=== PATIENT | female | born 1940 | race Caucasian/White ===

== ENCOUNTER 2017-01-19 10:13 | Inpatient (IN) | payer MEDICARE ==
[2017-01-19] MEDS ORDERED: SODIUM CHLORIDE 0.9% 500 ML IV STA (10:29)
--- NOTE | 2017-01-19 10:46 | ED ---
Weakness HPI - General Source: patient, family, RN notes reviewed Mode of arrival: wheelchair Limitations: no limitations <Tylor Navarro - Last Filed: 01/19/17 12:27> <Emmanuel Landa - Last Filed: 01/19/17 12:56> - General Chief complaint: Weakness Stated complaint: weakness Time Seen by Provider: 01/19/17 10:29 - History of Present Illness Initial comments: This is a 76-year-old female presents to emergency room with chief complaint of weakness. Patient states she's been having increasing weakness over last few days. Patient saw primary care physician on Tuesday because she's been having diarrhea and was diagnosed with UTI. Patient had lab work drawn and started on ciprofloxacin. She took her doses on Tuesday and this morning and states that they called her doctor who advised her emergency department due to increased weakness. She states she just generalized does not feel well. She denies any known fever but states that she's felt hot and cold. Patient denies chest pain, shortness breath, headache or dizziness. Patient has CVA in June was in rehab in [place]. Patient states she has paralysis of the left side. Patient was sent here for admission for placement in rehab. Patient denies any vomiting states that she is very nauseated and has some diarrhea (Tylor Navarro) - Related Data Home Medications Medication Instructions Recorded Confirmed Albuterol Sulfate [Proair Hfa] 1 - 2 puff INHALATION RT-Q6H PRN 12/20/14 Aspirin 81 mg PO DAILY 12/20/14 01/19/17 Beclomethasone Dipropionate [Qvar 2 puff INHALATION RT-BID 12/20/14 01/19/17 80 mcg/puff] Liraglutide [Victoza 3-Kaden] 1.2 mg SQ W/SUPPER 12/20/14 01/19/17 Metoprolol Tartrate [Lopressor] 25 mg PO DAILY 12/20/14 01/19/17 Montelukast [Singulair] 10 mg PO HS 12/20/14 01/19/17 Ramipril 10 mg PO W/SUPPER 12/20/14 01/19/17 metFORMIN HCL [Glucophage] 500 mg PO BID 12/20/14 01/19/17 Apixaban [Eliquis] 5 mg PO W/SUPPER 01/17/17 01/19/17 Atorvastatin [Lipitor] 40 mg PO DAILY 01/17/17 01/19/17 Baclofen [Lioresal] 5 mg PO BID@0800,1200 01/17/17 01/19/17 Baclofen [Lioresal] 15 mg PO HS 01/17/17 01/19/17 Cholecalciferol [Vitamin D3] 2,000 unit PO DAILY 01/17/17 01/19/17 Insulin Detemir [Levemir] 16 unit SQ AC-BRKFST 01/17/17 01/19/17 Magnesium Oxide [Mag-Ox] 400 mg PO DAILY 01/17/17 01/19/17 Omeprazole 40 mg PO DAILY 01/17/17 01/19/17 PARoxetine HCL [Paxil] 40 mg PO DAILY 01/17/17 01/19/17 Teriparatide [Forteo] 20 mcg SQ DAILY 01/17/17 01/19/17 amLODIPine [Norvasc] 5 mg PO BID 01/17/17 01/19/17 Previous Rx's Medication Instructions Recorded Ciprofloxacin HCl [Cipro] 500 mg PO Q12HR #20 tablet 01/17/17 Allergies Allergy/AdvReac Type Severity Reaction Status Date / Time Penicillins Allergy Unknown Verified 01/19/17 11:06 Childhood Review of Systems ROS Other: All systems not noted in ROS Statement are negative. <Tylor Navarro - Last Filed: 01/19/17 12:27> ROS Other: All systems not noted in ROS Statement are negative. <Emmanuel Landa - Last Filed: 01/19/17 12:56> ROS Statement: Those systems with pertinent positive or pertinent negative responses have been documented in the HPI. Past Medical History Past Medical History: Asthma, CVA/TIA, Diabetes Mellitus, GERD/Reflux, Hyperlipidemia, Hypertension Additional Past Medical History / Comment(s): irregular heartbeat History of Any Multi-Drug Resistant Organisms: None Reported Past Surgical History: Breast Surgery, Tonsillectomy Additional Past Surgical History / Comment(s): lung surgery,cataract both eyes, Past Psychological History: Anxiety, Depression Smoking Status: Never smoker Past Alcohol Use History: None Reported Past Drug Use History: None Reported <Tylor Navarro - Last Filed: 01/19/17 12:27> General Exam Limitations: no limitations General appearance: alert, in no apparent distress Head exam: Present: atraumatic, normocephalic, normal inspection Neck exam: Present: normal inspection, full ROM. Absent: tenderness, meningismus, lymphadenopathy Respiratory exam: Present: normal lung sounds bilaterally. Absent: respiratory distress, wheezes, rales, rhonchi, stridor Cardiovascular Exam: Present: regular rate, normal rhythm, normal heart sounds. Absent: systolic murmur, diastolic murmur, rubs, gallop, clicks GI/Abdominal exam: Present: soft, normal bowel sounds. Absent: distended, tenderness, guarding, rebound, rigid Extremities exam: Present: other (Left-sided paralysis) Neurological exam: Present: alert, oriented X3, CN II-XII intact Skin exam: Present: warm, dry, intact, normal color. Absent: rash <Tylor Navarro - Last Filed: 01/19/17 12:27> Course <Tylor Navarro - Last Filed: 01/19/17 12:27> <Emmanuel Landa - Last Filed: 01/19/17 12:56> Vital Signs 01/19/17 01/19/17 10:23 12:10 Temperature 98.4 F 97.4 F L Pulse Rate 64 74 Respiratory 16 20 Rate Blood Pressure 126/58 129/60 O2 Sat by Pulse 95 92 L Oximetry - Reevaluation(s) Reevaluation #1: 01/19/17 12:55 I did personally do a [id number] evaluation the patient did discuss findings with her and her . Patient does demonstrate dehydration no bowel pain on palpation at this time. I did review the charting and the labs that were performed. I did discuss the case with Dr. Valdez. Patient will be admitted for failed outpatient treatment (Emmanuel Landa) Medical Decision Making - Lab Data Result diagrams: 01/19/17 11:07 01/19/17 11:07 <Tylor Navarro - Last Filed: 01/19/17 12:27> - Lab Data Result diagrams: 01/19/17 11:07 01/19/17 11:07 <Emmanuel Landa - Last Filed: 01/19/17 12:56> - Lab Data Lab Results 01/19/17 01/19/17 01/19/17 Range/Units 11:07 11:07 11:07 WBC 9.4 (3.8-10.6) k/uL RBC 4.51 (3.80-5.40) m/uL Hgb 13.4 (11.4-16.0) gm/dL Hct 40.7 (34.0-46.0) % MCV 90.2 (80.0-100.0) fL MCH 29.8 (25.0-35.0) pg MCHC 33.0 (31.0-37.0) g/dL RDW 13.1 (11.5-15.5) % Plt Count 148 L (150-450) k/uL Neutrophils % 77 % Lymphocytes % 10 % Monocytes % 8 % Eosinophils % 2 % Basophils % 1 % Neutrophils # 7.2 (1.3-7.7) k/uL Lymphocytes # 0.9 L (1.0-4.8) k/uL Monocytes # 0.7 (0-1.0) k/uL Eosinophils # 0.2 (0-0.7) k/uL Basophils # 0.1 (0-0.2) k/uL PT (9.0-12.0) sec INR (<1.2) APTT (22.0-30.0) sec Sodium 138 (137-145) mmol/L Potassium 4.1 (3.5-5.1) mmol/L Chloride 105 (98-107) mmol/L Carbon Dioxide 22 (22-30) mmol/L Anion Gap 11 mmol/L BUN 22 H (7-17) mg/dL Creatinine 0.63 (0.52-1.04) mg/dL Est GFR (MDRD) Af Amer >60 (>60 ml/min/1.73 sqM) Est GFR (MDRD) Non-Af >60 (>60 ml/min/1.73 sqM) Glucose 90 (74-99) mg/dL Plasma Lactic Acid Demetris (0.7-2.0) mmol/L Calcium 8.9 (8.4-10.2) mg/dL Magnesium 1.7 (1.6-2.3) mg/dL Total Bilirubin 0.5 (0.2-1.3) mg/dL AST 48 H (14-36) U/L ALT 55 H (9-52) U/L Alkaline Phosphatase 124 (38-126) U/L Total Creatine Kinase 32 (30-135) U/L CK-MB (CK-2) <0.2 (0.0-2.4) ng/mL CK-MB (CK-2) Rel Index Troponin I <0.012 (0.000-0.034) ng/mL Total Protein 6.0 L (6.3-8.2) g/dL Albumin 3.0 L (3.5-5.0) g/dL Urine Color Urine Appearance (Clear) Urine pH (5.0-8.0) Ur Specific [place] (1.001-1.035) Urine Protein (Negative) Urine Glucose (UA) (Negative) Urine Ketones (Negative) Urine Blood (Negative) Urine Nitrite (Negative) Urine Bilirubin (Negative) Urine Urobilinogen (<2.0) mg/dL Ur Leukocyte Esterase (Negative) Urine RBC (0-5) /hpf Urine WBC (0-5) /hpf Urine WBC Clumps (None) /hpf Amorphous Sediment (None) /hpf Urine Bacteria (None) /hpf Urine Mucus (None) /hpf 01/19/17 01/19/17 01/19/17 Range/Units 11:07 11:07 11:07 WBC (3.8-10.6) k/uL RBC (3.80-5.40) m/uL Hgb (11.4-16.0) gm/dL Hct (34.0-46.0) % MCV (80.0-100.0) fL MCH (25.0-35.0) pg MCHC (31.0-37.0) g/dL RDW (11.5-15.5) % Plt Count (150-450) k/uL Neutrophils % % Lymphocytes % % Monocytes % % Eosinophils % % Basophils % % Neutrophils # (1.3-7.7) k/uL Lymphocytes # (1.0-4.8) k/uL Monocytes # (0-1.0) k/uL Eosinophils # (0-0.7) k/uL Basophils # (0-0.2) k/uL PT 12.1 H (9.0-12.0) sec INR 1.2 H (<1.2) APTT 20.3 L (22.0-30.0) sec Sodium (137-145) mmol/L Potassium (3.5-5.1) mmol/L Chloride (98-107) mmol/L Carbon Dioxide (22-30) mmol/L Anion Gap mmol/L BUN (7-17) mg/dL Creatinine (0.52-1.04) mg/dL Est GFR (MDRD) Af Amer (>60 ml/min/1.73 sqM) Est GFR (MDRD) Non-Af (>60 ml/min/1.73 sqM) Glucose (74-99) mg/dL Plasma Lactic Acid Demetris 1.4 (0.7-2.0) mmol/L Calcium (8.4-10.2) mg/dL Magnesium (1.6-2.3) mg/dL Total Bilirubin (0.2-1.3) mg/dL AST (14-36) U/L ALT (9-52) U/L Alkaline Phosphatase (38-126) U/L Total Creatine Kinase (30-135) U/L CK-MB (CK-2) (0.0-2.4) ng/mL CK-MB (CK-2) Rel Index Troponin I (0.000-0.034) ng/mL Total Protein (6.3-8.2) g/dL Albumin (3.5-5.0) g/dL Urine Color Yellow Urine Appearance Cloudy H (Clear) Urine pH 6.5 (5.0-8.0) Ur Specific [place] 1.012 (1.001-1.035) Urine Protein 1+ H (Negative) Urine Glucose (UA) Negative (Negative) Urine Ketones Negative (Negative) Urine Blood Large H (Negative) Urine Nitrite Negative (Negative) Urine Bilirubin Negative (Negative) Urine Urobilinogen <2.0 (<2.0) mg/dL Ur Leukocyte Esterase Large H (Negative) Urine RBC 128 H (0-5) /hpf Urine WBC 55 H (0-5) /hpf Urine WBC Clumps Many H (None) /hpf Amorphous Sediment Few H (None) /hpf Urine Bacteria Occasional H (None) /hpf Urine Mucus Rare H (None) /hpf Disposition Time of Disposition: 12:28 <Tylor Navarro - Last Filed: 01/19/17 12:27> <Emmanuel Landa - Last Filed: 01/19/17 12:56> Clinical Impression: UTI (urinary tract infection), Failure of outpatient treatment, Diarrhea, Weakness, History of CVA with residual deficit Disposition: ADMITTED IP TO THIS HOSP Condition: Fair Referrals: Sana Guy MD [Primary Care Provider] - 1-2 days Addendum entered and electronically signed by Tylor Navarro PA-C 01/19/17 12: 32: EKG performed at 11:22 normal sinus rhythm with a rate of 70 GA interval 146 QRS duration 76 QT/QTC 432/466
[2017-01-19 11:32] LABS: Basophils # (A) 0.1 k/uL (0-0.2); Basophils % (A) 1 %; CH 29.4; CHCM 32.7; Eosinophils # (A) 0.2 k/uL (0-0.7); Eosinophils % (A) 2 %; HCT 40.7 % (34.0-46.0); HDW 2.32; HGB 13.4 gm/dL (11.4-16.0); Luc # (Auto) 0.31; Luc % (Auto) 3; Lymphocytes # (A) 0.9 k/uL (1.0-4.8); Lymphocytes % (A) 10 %; MCH 29.8 pg (25.0-35.0); MCV 90.2 fL (80.0-100.0); Mean Platelet Volume 9.6; Monocytes # (A) 0.7 k/uL (0-1.0); Monocytes % (A) 8 %; Neutrophils # (A) 7.2 k/uL (1.3-7.7); Neutrophils % (A) 77 %; RBC 4.51 m/uL (3.80-5.40); RDW 13.1 % (11.5-15.5); WBC 9.4 k/uL (3.8-10.6); WBC (Perox) 9.69
[2017-01-19 11:39] LABS: ALT 55 U/L (9-52); AST 48 U/L (14-36); Alkaline Phosphatase 124 U/L (38-126); Anion Gap 11 mmol/L; Blood Urea Nitrogen 22 mg/dL (7-17); Calcium 8.9 mg/dL (8.4-10.2); Carbon Dioxide 22 mmol/L (22-30); Chloride 105 mmol/L (98-107); Glucose 90 mg/dL (74-99); Magnesium 1.7 mg/dL (1.6-2.3); Non-African American GFR(MDRD) >60 (>60 ml/min/1.73 sqM); Potassium 4.1 mmol/L (3.5-5.1); Sodium 138 mmol/L (137-145); Total Bilirubin 0.5 mg/dL (0.2-1.3)
[2017-01-19 11:49] LABS: Creatine Kinase 32 U/L (30-135)
[2017-01-19 11:51] LABS: INR 1.2 (<1.2); Prothrombin Time 12.1 sec (9.0-12.0)
--- NOTE | 2017-01-19 11:52 | XR ---
EXAMINATION TYPE: XR chest 2V DATE OF EXAM: 01/19/2017 COMPARISON: NONE TECHNIQUE: PA and lateral views submitted. HISTORY: Weakness and pain FINDINGS: The lungs are clear and there is no pneumothorax, pleural effusion, or focal pneumonia. Reduced ins piration with subsegmental changes at both lung bases. Postsurgical change in the left. Diffuse osteo penia and arthropathy of the shoulders. Atherosclerotic change aorta. Small right pleural effusion. IMPRESSION: 1. Small right pleural effusion with subsegmental atelectasis favored over infiltrate. Correlate clin ically.
[2017-01-19 11:55] LABS: Amorphous Sediment,Urine Few /hpf; Appearance,Urine Cloudy (Clear); Bacteria,Urine Occasional /hpf; Bilirubin,Urine Negative (Negative); Glucose,Urine (UA) Negative (Negative); Ketones,Urine Negative (Negative); Leukocyte Esterase,Urine Large (Negative); Mucus,Urine Rare /hpf; Nitrite,Urine Negative (Negative); PH, Urine 6.5 (5.0-8.0); Particle Count 13709; Protein,Urine 1+ (Negative); RBC,Urine 128 /hpf (0-5); Specific Gravity,Urine 1.012 (1.001-1.035); UA Billing (MACRO vs. MICRO) MICRO; Urobilinogen,Urine <2.0 mg/dL (<2.0); WBC,Urine 55 /hpf (0-5)
[2017-01-19 11:58] LABS: Partial Thromboplastin Time 20.3 sec (22.0-30.0)
[2017-01-19 12:03] LABS: Troponin I <0.012 ng/mL (0.000-0.034)
[2017-01-19 12:08] LABS: Creatine Kinase MB <0.2 ng/mL (0.0-2.4)
[2017-01-19] MEDS ORDERED: NALOXONE 0.4 MG/ML 1 ML VIAL IV PRN (12:28)
[2017-01-19] MEDS ORDERED: ACETAMINOPHEN TAB 325 MG TAB PO PRN (12:28)
[2017-01-19] MEDS: SODIUM CHLORIDE 0.9% 1,000 ML IV SCH (13:06)
[2017-01-19 15:35] LABS: Glucose,Whole Blood 81 mg/dL (75-99)
[2017-01-19] MEDS ORDERED: ALBUTEROL NEBULIZED 2.5 MG/3 ML INHALATION PRN (16:38)
[2017-01-19 17:05] LABS: Glucose,Whole Blood 89 mg/dL (75-99)
[2017-01-19] MEDS: INSULIN LISPRO (humaLOG) 300 UNIT/3 ML VIAL SQ SCH ×2 (18:04→21:55)
[2017-01-19] MEDS: LISINOPRIL 20 MG TAB PO SCH (18:06)
[2017-01-19] MEDS: APIXABAN 5 MG TAB PO SCH (18:06)
[2017-01-19 20:59] LABS: Glucose,Whole Blood 113 mg/dL (75-99)
[2017-01-19] MEDS ORDERED: BACLOFEN 10 MG TAB PO SCH (21:00)
[2017-01-19 21:01] LABS: Hemoglobin A1C 6.8 % (4.2-6.1)
[2017-01-19] MEDS: BECLOMETHASONE DIP 80 MCG/PUFF INHALER INHALATION SCH (21:02)
[2017-01-19] MEDS: amLODIPine 5 MG TAB PO SCH (21:54)
[2017-01-19] MEDS: MONTELUKAST 10 MG TAB PO SCH (21:54)
[2017-01-19] MEDS: metFORMIN 500 MG TAB PO SCH (21:54)
[2017-01-19] MEDS: CIPROFLOXACIN HCL 500 MG TAB PO SCH (21:54)
[2017-01-19] MEDS: METOPROLOL TARTRATE 25 MG TAB PO SCH (21:56)
[2017-01-20] MEDS: SODIUM CHLORIDE 0.9% 1,000 ML IV SCH ×2 (06:18→16:25)
[2017-01-20 06:59] LABS: Glucose,Whole Blood 108 mg/dL (75-99)
[2017-01-20] MEDS ORDERED: INSULIN DETEMIR 100 UNIT/ML 10 ML VIAL SQ SCH (07:30)
[2017-01-20] MEDS: INSULIN LISPRO (humaLOG) 300 UNIT/3 ML VIAL SQ SCH ×4 (07:33→20:56)
[2017-01-20] MEDS: amLODIPine 5 MG TAB PO SCH ×2 (07:57→20:54)
[2017-01-20] MEDS: ASPIRIN 81 MG PO SCH (07:58)
[2017-01-20] MEDS: CIPROFLOXACIN HCL 500 MG TAB PO SCH (07:58)
[2017-01-20] MEDS: MAGNESIUM OXIDE 400 MG TAB PO SCH (07:58)
[2017-01-20] MEDS: metFORMIN 500 MG TAB PO SCH (07:58)
[2017-01-20] MEDS: APIXABAN 5 MG TAB PO SCH ×2 (07:58→17:37)
[2017-01-20] MEDS: PANTOPRAZOLE 40 MG TABLET PO SCH (07:58)
[2017-01-20] MEDS: PARoxetine 20 MG TAB PO SCH (07:58)
[2017-01-20] MEDS: METOPROLOL TARTRATE 25 MG TAB PO SCH ×2 (07:59→20:55)
[2017-01-20] MEDS ORDERED: BACLOFEN 10 MG TAB PO SCH (08:00)
[2017-01-20] MEDS: BECLOMETHASONE DIP 80 MCG/PUFF INHALER INHALATION SCH ×2 (08:18→20:07)
[2017-01-20] MEDS ORDERED: ATORVASTATIN 40 MG TAB PO SCH (09:00)
[2017-01-20] MEDS ORDERED: NON-FORMULARY DRUG (Teriparatide [Forteo] 20 MCG) SQ SCH (09:00)
--- NOTE | 2017-01-20 10:30 | P.HPIM ---
History of Present Illness H&P Date: 01/20/17 This is a 76-year-old female with past medical history noted below significant for history of CVA with left-sided hemiplegia who presented to the emergency room with worsening weakness and fatigue. Patient and her said that her symptoms started approximately 10 days ago and is being getting progressively worse. Usually patient is bedbound and her is her primary caregiver. He said that recently she is getting more weak and was unable even to feed herself. She was evaluated by her primary care physician and was diagnosed with an underlying urinary tract infection. She was prescribed Cipro that she took for a couple of days with no improvement. She was asked by her primary care physician to go to the emergency room for further evaluation. In the emergency room, patient was hemodynamically stable. No documented fever. Her urinalysis was strongly positive for underlying UTI. She was started on IV ceftriaxone and was admitted to the hospital for further evaluation. Review of Systems Review of system: 14 points review of systems were obtained and were negative except to what were mentioned in the HPI. Past Medical History Past Medical History: Atrial Fibrillation, Asthma, CVA/TIA, Diabetes Mellitus, GERD/Reflux, Hyperlipidemia, Hypertension Additional Past Medical History / Comment(s): Current UTI on ABX, 06/2016 CVA with L arm and L leg weakness-wheelchair bound, IDDM type II, incontinent of urine and stool-wears depends. History of Any Multi-Drug Resistant Organisms: None Reported Past Surgical History: Breast Surgery, Orthopedic Surgery, Tonsillectomy Additional Past Surgical History / Comment(s): L lung surgery for benign mass, cataract/lens implants both eyes, colonoscopy, R rotator cuff repair. Past Anesthesia/Blood Transfusion Reactions: No Reported Reaction Additional Past Anesthesia/Blood Transfusion Reaction / Comment(s): Pt states she has never received blood. Past Psychological History: Anxiety, Depression Additional Psychological History / Comment(s): Pt resides with her spouse who is her caregiver. She is wheelchair bound, spouse assists her into wheelchair. Spouse drives. Smoking Status: Former smoker Past Alcohol Use History: None Reported Past Drug Use History: None Reported - Past Family History Father Family Medical History: COPD Additional Family Medical History / Comment(s): Father at the age of 65yrs from COPD. He has "thick blood" and had to have blood removed at times. Mother Family Medical History: Cancer Additional Family Medical History / Comment(s): Mother of lymphosarcoma at the age of 55yrs. Medications and Allergies Home Medications Medication Instructions Recorded Confirmed Type Albuterol Sulfate [Proair Hfa] 1 - 2 puff INHALATION RT-Q6H PRN 12/20/14 History Aspirin 81 mg PO DAILY 12/20/14 01/19/17 History Beclomethasone Dipropionate [Qvar 2 puff INHALATION RT-BID 12/20/14 01/19/17 History 80 mcg/puff] Liraglutide [Victoza 3-Kaden] 1.2 mg SQ W/SUPPER 12/20/14 01/19/17 History Montelukast [Singulair] 10 mg PO HS 12/20/14 01/19/17 History Ramipril 10 mg PO W/SUPPER 12/20/14 01/19/17 History metFORMIN HCL [Glucophage] 500 mg PO BID 12/20/14 01/19/17 History Apixaban [Eliquis] 5 mg PO AC-BID 01/17/17 01/19/17 History Atorvastatin [Lipitor] 40 mg PO DAILY 01/17/17 01/19/17 History Baclofen [Lioresal] 5 mg PO BID@0800,1200 01/17/17 01/19/17 History Baclofen [Lioresal] 15 mg PO HS 01/17/17 01/19/17 History Cholecalciferol [Vitamin D3] 2,000 unit PO DAILY 01/17/17 01/19/17 History Ciprofloxacin HCl [Cipro] 500 mg PO Q12HR #20 tablet 01/17/17 01/19/17 Rx Insulin Detemir [Levemir] 16 unit SQ AC-BRKFST 01/17/17 01/19/17 History Magnesium Oxide [Mag-Ox] 400 mg PO DAILY 01/17/17 01/19/17 History Omeprazole 40 mg PO DAILY 01/17/17 01/19/17 History PARoxetine HCL [Paxil] 40 mg PO DAILY 01/17/17 01/19/17 History Teriparatide [Forteo] 20 mcg SQ DAILY 01/17/17 01/19/17 History amLODIPine [Norvasc] 5 mg PO BID 01/17/17 01/19/17 History Metoprolol Tartrate [Lopressor] 25 mg PO BID 01/19/17 01/19/17 History Allergies Allergy/AdvReac Type Severity Reaction Status Date / Time Penicillins Allergy Unknown Verified 01/19/17 11:06 Childhood Physical Exam Vitals: Vital Signs Temp Pulse Pulse Resp BP BP Pulse Ox 01/20/17 07:00 97.1 F L 85 16 138/71 94 L 01/19/17 23:00 97.2 F L 85 16 138/66 92 L 01/19/17 15:15 98.3 F 72 16 124/59 96 01/19/17 14:54 97.7 F 80 18 136/67 97 01/19/17 13:07 97.7 F 74 16 130/67 95 01/19/17 12:10 97.4 F L 74 20 129/60 92 L Intake and Output 01/19/17 01/20/17 01/20/17 22:59 06:59 14:59 Other: # Voids 2 2 Weight 75.3 kg General: The patient is awake and alert, in no distress Eye: there is normal conjunctiva bilaterally. Neck: The neck is supple, there is no JVD. Cardiovascular: Normal S1-S2, no S3-S4, no murmurs. Respiratory: Lungs clear to auscultation bilaterally Gastrointestinal: Abdomen is soft, nontender Musculoskeletal: There is no pedal edema. There is left-sided hemiplegia Neurological:. Speech is normal. Skin: Skin is warm and dry Results CBC & Chem 7: 01/19/17 11:07 01/19/17 11:07 Labs: Abnormal Lab Results - Last 24 Hours (Table) 01/19/17 01/19/17 01/19/17 Range/Units 11:07 11:07 11:07 Plt Count 148 L (150-450) k/uL Lymphocytes # 0.9 L (1.0-4.8) k/uL PT 12.1 H (9.0-12.0) sec INR 1.2 H (<1.2) APTT 20.3 L (22.0-30.0) sec BUN 22 H (7-17) mg/dL POC Glucose (mg/dL) (75-99) mg/dL Hemoglobin A1c (4.2-6.1) % AST 48 H (14-36) U/L ALT 55 H (9-52) U/L Total Protein 6.0 L (6.3-8.2) g/dL Albumin 3.0 L (3.5-5.0) g/dL Urine Appearance (Clear) Urine Protein (Negative) Urine Blood (Negative) Ur Leukocyte Esterase (Negative) Urine RBC (0-5) /hpf Urine WBC (0-5) /hpf Urine WBC Clumps (None) /hpf Amorphous Sediment (None) /hpf Urine Bacteria (None) /hpf Urine Mucus (None) /hpf 01/19/17 01/19/17 01/19/17 Range/Units 11:07 11:07 20:48 Plt Count (150-450) k/uL Lymphocytes # (1.0-4.8) k/uL PT (9.0-12.0) sec INR (<1.2) APTT (22.0-30.0) sec BUN (7-17) mg/dL POC Glucose (mg/dL) 113 H (75-99) mg/dL Hemoglobin A1c 6.8 H (4.2-6.1) % AST (14-36) U/L ALT (9-52) U/L Total Protein (6.3-8.2) g/dL Albumin (3.5-5.0) g/dL Urine Appearance Cloudy H (Clear) Urine Protein 1+ H (Negative) Urine Blood Large H (Negative) Ur Leukocyte Esterase Large H (Negative) Urine RBC 128 H (0-5) /hpf Urine WBC 55 H (0-5) /hpf Urine WBC Clumps Many H (None) /hpf Amorphous Sediment Few H (None) /hpf Urine Bacteria Occasional H (None) /hpf Urine Mucus Rare H (None) /hpf 01/20/17 Range/Units 06:57 Plt Count (150-450) k/uL Lymphocytes # (1.0-4.8) k/uL PT (9.0-12.0) sec INR (<1.2) APTT (22.0-30.0) sec BUN (7-17) mg/dL POC Glucose (mg/dL) 108 H (75-99) mg/dL Hemoglobin A1c (4.2-6.1) % AST (14-36) U/L ALT (9-52) U/L Total Protein (6.3-8.2) g/dL Albumin (3.5-5.0) g/dL Urine Appearance (Clear) Urine Protein (Negative) Urine Blood (Negative) Ur Leukocyte Esterase (Negative) Urine RBC (0-5) /hpf Urine WBC (0-5) /hpf Urine WBC Clumps (None) /hpf Amorphous Sediment (None) /hpf Urine Bacteria (None) /hpf Urine Mucus (None) /hpf Microbiology - Last 24 Hours (Table) 01/19/17 11:07 Urine Culture - Preliminary Urine,Catheterized Thrombosis Risk Factor Assmnt - Choose All That Apply Any of the Below Risk Factors Present?: Yes Each Factor Represents 1 point: Obesity (BMI >25) Other Risk Factors: Yes Each Risk Factor Represents 3 Points: Age 75 years or older Other congenital or acquired thrombophilia - If yes, enter type in comment: No Thrombosis Risk Factor Assessment Total Risk Factor Score: 4 Thrombosis Risk Factor Assessment Level: Moderate Risk Assessment and Plan Plan: 1. Uncomplicated urinary tract infection on IV ceftriaxone awaiting urine culture 2. History of CVA with chronic left-sided hemiplegia 3. Type 2 diabetes mellitus: Well controlled. A1c 6.8. Patient is having borderline low blood glucose in the morning. I would decrease her Levemir dose to 13 units down from 16. 4. Essential hypertension: Blood pressure well-controlled 5. Mixed hyperlipidemia: I would hold Lipitor for now given mild transaminitis. We will repeat blood work in the morning. 6. DVT prophylaxis: Patient is on anticoagulation Today, I reviewed her medication list and lab work results continue current regimen. I discussed with the patient and her that baclofen might be contributing to her symptoms. I would discontinue dose scheduled twice a day and change her evening dose to 10 mg at bedtime. We will continue monitor closely. PT/OT evaluation. Discussed placement to [facility] for rehab.
[2017-01-20] MEDS: CHOLECALCIFEROL 1,000 UNIT TAB PO SCH (11:38)
[2017-01-20 11:56] LABS: Glucose,Whole Blood 108 mg/dL (75-99)
[2017-01-20 15:23] VITALS: BMI 29.4
[2017-01-20 17:24] LABS: Glucose,Whole Blood 138 mg/dL (75-99)
[2017-01-20] MEDS: LISINOPRIL 20 MG TAB PO SCH (17:37)
[2017-01-20 20:49] LABS: Glucose,Whole Blood 154 mg/dL (75-99)
[2017-01-20] MEDS: BACLOFEN 10 MG TAB PO SCH (20:54)
[2017-01-20] MEDS: MONTELUKAST 10 MG TAB PO SCH (20:55)
[2017-01-20] MEDS ORDERED: HEPARIN SODIUM,PORCINE 5,000 UNIT/ML 1 ML VIAL SQ SCH (21:00)
[2017-01-21] MEDS: SODIUM CHLORIDE 0.9% 1,000 ML IV SCH (05:48)
[2017-01-21 07:30] LABS: Glucose,Whole Blood 127 mg/dL (75-99)
[2017-01-21] MEDS: BECLOMETHASONE DIP 80 MCG/PUFF INHALER INHALATION SCH ×2 (08:24→21:16)
[2017-01-21 09:19] LABS: Basophils % (A) 0 %; CH 29.4; CHCM 32.2; Eosinophils # (A) 0.1 k/uL (0-0.7); Eosinophils % (A) 1 %; HCT 38.4 % (34.0-46.0); HDW 2.42; HGB 12.4 gm/dL (11.4-16.0); Luc # (Auto) 0.17; Luc % (Auto) 2; Lymphocytes % (A) 10 %; MCH 29.6 pg (25.0-35.0); MCHC 32.3 g/dL (31.0-37.0); MCV 91.6 fL (80.0-100.0); Mean Platelet Volume 8.4; Monocytes # (A) 0.5 k/uL (0-1.0); Monocytes % (A) 5 %; Neutrophils % (A) 81 %; RBC 4.19 m/uL (3.80-5.40); RDW 13.3 % (11.5-15.5); WBC 9.9 k/uL (3.8-10.6); WBC (Perox) 10.51
[2017-01-21] MEDS: INSULIN DETEMIR 100 UNIT/ML 10 ML VIAL SQ SCH (09:31)
[2017-01-21] MEDS: MAGNESIUM OXIDE 400 MG TAB PO SCH (09:31)
[2017-01-21] MEDS: PARoxetine 20 MG TAB PO SCH (09:32)
[2017-01-21] MEDS: PANTOPRAZOLE 40 MG TABLET PO SCH (09:32)
[2017-01-21] MEDS: amLODIPine 5 MG TAB PO SCH ×2 (09:32→20:39)
[2017-01-21] MEDS: METOPROLOL TARTRATE 25 MG TAB PO SCH ×2 (09:32→20:38)
[2017-01-21] MEDS: APIXABAN 5 MG TAB PO SCH ×2 (09:32→17:47)
[2017-01-21] MEDS: INSULIN LISPRO (humaLOG) 300 UNIT/3 ML VIAL SQ SCH ×4 (09:32→20:41)
[2017-01-21] MEDS: ASPIRIN 81 MG PO SCH (09:32)
[2017-01-21 09:50] LABS: ALT 67 U/L (9-52); AST 42 U/L (14-36); Alkaline Phosphatase 154 U/L (38-126); Anion Gap 10 mmol/L; Blood Urea Nitrogen 7 mg/dL (7-17); Calcium 8.5 mg/dL (8.4-10.2); Carbon Dioxide 21 mmol/L (22-30); Chloride 107 mmol/L (98-107); Glucose 234 mg/dL (74-99); Non-African American GFR(MDRD) >60 (>60 ml/min/1.73 sqM); Potassium 3.9 mmol/L (3.5-5.1); Sodium 138 mmol/L (137-145); Total Bilirubin 0.3 mg/dL (0.2-1.3); Total Protein 5.4 g/dL (6.3-8.2)
[2017-01-21 12:33] LABS: Glucose,Whole Blood 139 mg/dL (75-99)
[2017-01-21] MEDS: CHOLECALCIFEROL 1,000 UNIT TAB PO SCH (12:37)
[2017-01-21 17:00] LABS: Glucose,Whole Blood 148 mg/dL (75-99)
[2017-01-21] MEDS: LISINOPRIL 20 MG TAB PO SCH (17:47)
[2017-01-21 20:36] LABS: Glucose,Whole Blood 219 mg/dL (75-99)
[2017-01-21] MEDS: MONTELUKAST 10 MG TAB PO SCH (20:39)
[2017-01-21] MEDS: BACLOFEN 10 MG TAB PO SCH (20:39)
[2017-01-22 07:20] LABS: Glucose,Whole Blood 117 mg/dL (75-99)
[2017-01-22] MEDS: BECLOMETHASONE DIP 80 MCG/PUFF INHALER INHALATION SCH ×2 (07:53→18:47)
[2017-01-22 08:20] LABS: Basophils # (A) 0.1 k/uL (0-0.2); Basophils % (A) 1 %; CH 28.9; CHCM 31.2; Eosinophils # (A) 0.2 k/uL (0-0.7); Eosinophils % (A) 1 %; HCT 41.2 % (34.0-46.0); HDW 2.44; Luc # (Auto) 0.25; Luc % (Auto) 2; Lymphocytes # (A) 1.1 k/uL (1.0-4.8); Lymphocytes % (A) 10 %; MCH 29.5 pg (25.0-35.0); MCHC 31.6 g/dL (31.0-37.0); MCV 93.3 fL (80.0-100.0); Mean Platelet Volume 7.5; Monocytes # (A) 0.6 k/uL (0-1.0); Monocytes % (A) 5 %; Neutrophils # (A) 9.3 k/uL (1.3-7.7); Neutrophils % (A) 82 %; RBC 4.42 m/uL (3.80-5.40); RDW 13.2 % (11.5-15.5); WBC 11.4 k/uL (3.8-10.6); WBC (Perox) 11.72
[2017-01-22] MEDS: APIXABAN 5 MG TAB PO SCH ×2 (08:28→17:29)
[2017-01-22] MEDS: amLODIPine 5 MG TAB PO SCH ×2 (08:28→20:16)
[2017-01-22] MEDS: METOPROLOL TARTRATE 25 MG TAB PO SCH ×2 (08:28→20:16)
[2017-01-22] MEDS: PARoxetine 20 MG TAB PO SCH (08:28)
[2017-01-22] MEDS: PANTOPRAZOLE 40 MG TABLET PO SCH (08:28)
[2017-01-22] MEDS: MAGNESIUM OXIDE 400 MG TAB PO SCH (08:28)
[2017-01-22] MEDS: ASPIRIN 81 MG PO SCH (08:29)
[2017-01-22] MEDS: INSULIN DETEMIR 100 UNIT/ML 10 ML VIAL SQ SCH (08:29)
[2017-01-22] MEDS: INSULIN LISPRO (humaLOG) 300 UNIT/3 ML VIAL SQ SCH ×4 (08:29→21:06)
[2017-01-22 08:47] LABS: Anion Gap 9 mmol/L; Calcium 8.7 mg/dL (8.4-10.2); Carbon Dioxide 20 mmol/L (22-30); Chloride 110 mmol/L (98-107); Glucose 140 mg/dL (74-99); Non-African American GFR(MDRD) >60 (>60 ml/min/1.73 sqM); Sodium 139 mmol/L (137-145); Total Bilirubin 0.5 mg/dL (0.2-1.3); Total Protein 5.9 g/dL (6.3-8.2)
[2017-01-22 08:53] LABS: ALT 58 U/L (9-52); AST 42 U/L (14-36); Alkaline Phosphatase 136 U/L (38-126); Blood Urea Nitrogen 6 mg/dL (7-17); Potassium 4.3 mmol/L (3.5-5.1)
[2017-01-22 12:48] LABS: Glucose,Whole Blood 144 mg/dL (75-99)
--- NOTE | 2017-01-22 13:14 | P.PN ---
Subjective Patient is doing well today. No events overnight. at bedside. Objective - Vital Signs Vital signs: Vital Signs Temp 97.0 F L 01/21/17 07:00 Pulse 73 01/21/17 07:00 Resp 16 01/21/17 07:00 BP 147/70 01/21/17 07:00 Pulse Ox 95 01/21/17 07:00 Intake & Output 01/20/17 01/21/17 01/21/17 18:59 06:59 18:59 Weight 75.3 kg Other: Voiding Method Incontinent Incontinent Incontinent # Voids 1 3 - Labs CBC & Chem 7: 01/21/17 08:28 01/21/17 08:28 Labs: Abnormal Lab Results - Last 24 Hours (Table) 01/20/17 01/20/17 01/21/17 Range/Units 17:20 20:45 07:20 Neutrophils # (1.3-7.7) k/uL Carbon Dioxide (22-30) mmol/L Creatinine (0.52-1.04) mg/dL Glucose (74-99) mg/dL POC Glucose (mg/dL) 138 H 154 H 127 H (75-99) mg/dL AST (14-36) U/L ALT (9-52) U/L Alkaline Phosphatase (38-126) U/L Total Protein (6.3-8.2) g/dL Albumin (3.5-5.0) g/dL 01/21/17 01/21/17 01/21/17 Range/Units 08:28 08:28 12:08 Neutrophils # 8.0 H (1.3-7.7) k/uL Carbon Dioxide 21 L (22-30) mmol/L Creatinine 0.50 L (0.52-1.04) mg/dL Glucose 234 H (74-99) mg/dL POC Glucose (mg/dL) 139 H (75-99) mg/dL AST 42 H (14-36) U/L ALT 67 H (9-52) U/L Alkaline Phosphatase 154 H (38-126) U/L Total Protein 5.4 L (6.3-8.2) g/dL Albumin 2.6 L (3.5-5.0) g/dL Microbiology - Last 24 Hours (Table) 01/19/17 11:07 Urine Culture - Final Urine,Catheterized 01/19/17 11:07 Blood Culture - Preliminary Blood No Growth after 24 hours
--- NOTE | 2017-01-22 13:15 | P.PN ---
Subjective Patient is doing well today. No events overnight. Objective - Vital Signs Vital signs: Vital Signs Temp 97.6 F 01/22/17 07:00 Pulse 73 01/22/17 07:00 Resp 16 01/22/17 07:00 BP 137/72 01/22/17 07:00 Pulse Ox 92 L 01/22/17 07:00 Intake & Output 01/21/17 01/22/17 01/22/17 18:59 06:59 18:59 Intake Total 480 300 Balance 480 300 Weight 75.3 kg Intake: Oral 480 300 Other: Voiding Method Incontinent Incontinent Incontinent # Voids 1 2 1 # Bowel Movements 0 0 - Exam General: The patient is awake and alert, in no distress Eye: there is normal conjunctiva bilaterally. Neck: The neck is supple, there is no JVD. Cardiovascular: Normal S1-S2, no S3-S4, no murmurs. Respiratory: Lungs clear to auscultation bilaterally Gastrointestinal: Abdomen is soft, nontender Musculoskeletal: There is no pedal edema. Neurological:. Speech is normal. There is left-sided hemiplegia Skin: Skin is warm and dry - Labs CBC & Chem 7: 01/22/17 07:46 01/22/17 07:46 Labs: Abnormal Lab Results - Last 24 Hours (Table) 01/21/17 01/21/17 01/22/17 Range/Units 16:49 20:35 07:09 WBC (3.8-10.6) k/uL Neutrophils # (1.3-7.7) k/uL Chloride (98-107) mmol/L Carbon Dioxide (22-30) mmol/L BUN (7-17) mg/dL Creatinine (0.52-1.04) mg/dL Glucose (74-99) mg/dL POC Glucose (mg/dL) 148 H 219 H 117 H (75-99) mg/dL AST (14-36) U/L ALT (9-52) U/L Alkaline Phosphatase (38-126) U/L Total Protein (6.3-8.2) g/dL Albumin (3.5-5.0) g/dL 01/22/17 01/22/17 01/22/17 Range/Units 07:46 07:46 12:24 WBC 11.4 H (3.8-10.6) k/uL Neutrophils # 9.3 H (1.3-7.7) k/uL Chloride 110 H (98-107) mmol/L Carbon Dioxide 20 L (22-30) mmol/L BUN 6 L (7-17) mg/dL Creatinine 0.50 L (0.52-1.04) mg/dL Glucose 140 H (74-99) mg/dL POC Glucose (mg/dL) 144 H (75-99) mg/dL AST 42 H (14-36) U/L ALT 58 H (9-52) U/L Alkaline Phosphatase 136 H (38-126) U/L Total Protein 5.9 L (6.3-8.2) g/dL Albumin 2.7 L (3.5-5.0) g/dL Microbiology - Last 24 Hours (Table) 01/19/17 11:07 Blood Culture - Preliminary Blood No Growth after 48 hours Assessment and Plan Plan: 1. Uncomplicated urinary tract infection on IV ceftriaxone awaiting urine culture 2. History of CVA with chronic left-sided hemiplegia 3. Type 2 diabetes mellitus: Well controlled. A1c 6.8. Patient is having borderline low blood glucose in the morning. I would decrease her Levemir dose to 13 units down from 16. 4. Essential hypertension: Blood pressure well-controlled 5. Mixed hyperlipidemia: I would hold Lipitor for now given mild transaminitis. We will repeat blood work in the morning. 6. DVT prophylaxis: Patient is on anticoagulation Today, I reviewed her medication list and lab work results continue current regimen. I discussed with the patient and her that baclofen might be contributing to her symptoms. I would discontinue dose scheduled twice a day and change her evening dose to 10 mg at bedtime. We will continue monitor closely. PT/OT evaluation. Awaiting placement to [facility] for subacute rehab on Tuesday
[2017-01-22] MEDS: CHOLECALCIFEROL 1,000 UNIT TAB PO SCH (13:44)
[2017-01-22 16:52] LABS: Glucose,Whole Blood 206 mg/dL (75-99)
[2017-01-22] MEDS: LISINOPRIL 20 MG TAB PO SCH (17:29)
[2017-01-22] MEDS: MONTELUKAST 10 MG TAB PO SCH (20:15)
[2017-01-22] MEDS: BACLOFEN 10 MG TAB PO SCH (20:16)
[2017-01-22 20:39] LABS: Glucose,Whole Blood 178 mg/dL (75-99)
[2017-01-23 07:15] LABS: Glucose,Whole Blood 165 mg/dL (75-99)
[2017-01-23] MEDS: METOPROLOL TARTRATE 25 MG TAB PO SCH ×2 (07:37→20:47)
[2017-01-23] MEDS: PANTOPRAZOLE 40 MG TABLET PO SCH (07:37)
[2017-01-23] MEDS: PARoxetine 20 MG TAB PO SCH (07:37)
[2017-01-23] MEDS: amLODIPine 5 MG TAB PO SCH ×2 (07:37→20:47)
[2017-01-23] MEDS: MAGNESIUM OXIDE 400 MG TAB PO SCH (07:37)
[2017-01-23] MEDS: APIXABAN 5 MG TAB PO SCH ×2 (07:37→17:27)
[2017-01-23] MEDS: ASPIRIN 81 MG PO SCH (07:37)
[2017-01-23] MEDS: INSULIN DETEMIR 100 UNIT/ML 10 ML VIAL SQ SCH (07:38)
[2017-01-23] MEDS: INSULIN LISPRO (humaLOG) 300 UNIT/3 ML VIAL SQ SCH ×4 (07:38→20:47)
[2017-01-23 07:47] LABS: Basophils % (A) 0 %; CH 29.1; CHCM 32.5; Eosinophils # (A) 0.2 k/uL (0-0.7); Eosinophils % (A) 2 %; HCT 38.8 % (34.0-46.0); HGB 12.9 gm/dL (11.4-16.0); Luc # (Auto) 0.22; Luc % (Auto) 2; Lymphocytes # (A) 1.3 k/uL (1.0-4.8); Lymphocytes % (A) 13 %; MCH 29.9 pg (25.0-35.0); MCHC 33.2 g/dL (31.0-37.0); MCV 89.9 fL (80.0-100.0); Mean Platelet Volume 7.8; Monocytes # (A) 0.4 k/uL (0-1.0); Monocytes % (A) 4 %; Neutrophils # (A) 8.1 k/uL (1.3-7.7); Neutrophils % (A) 79 %; RBC 4.31 m/uL (3.80-5.40); RDW 13.2 % (11.5-15.5); WBC 10.2 k/uL (3.8-10.6); WBC (Perox) 10.59
[2017-01-23 08:11] LABS: ALT 57 U/L (9-52); AST 33 U/L (14-36); Alkaline Phosphatase 133 U/L (38-126); Anion Gap 8 mmol/L; Blood Urea Nitrogen 7 mg/dL (7-17); Calcium 8.9 mg/dL (8.4-10.2); Carbon Dioxide 25 mmol/L (22-30); Chloride 107 mmol/L (98-107); Glucose 141 mg/dL (74-99); Non-African American GFR(MDRD) >60 (>60 ml/min/1.73 sqM); Potassium 4.3 mmol/L (3.5-5.1); Sodium 140 mmol/L (137-145); Total Bilirubin 0.3 mg/dL (0.2-1.3); Total Protein 5.8 g/dL (6.3-8.2)
[2017-01-23] MEDS: BECLOMETHASONE DIP 80 MCG/PUFF INHALER INHALATION SCH ×2 (08:12→20:30)
[2017-01-23 12:04] LABS: Glucose,Whole Blood 219 mg/dL (75-99)
--- NOTE | 2017-01-23 12:23 | P.PN ---
Subjective Patient is doing well today. No events overnight. Objective - Vital Signs Vital signs: Vital Signs Temp 98.1 F 01/23/17 07:00 Pulse 65 01/23/17 07:00 Resp 16 01/23/17 07:00 BP 133/63 01/23/17 07:00 Pulse Ox 95 01/23/17 07:00 Intake & Output 01/22/17 01/23/17 01/23/17 18:59 06:59 18:59 Intake Total 600 Balance 600 Intake: Oral 600 Other: Voiding Method Incontinent Incontinent Incontinent # Voids 2 2 - Exam General: The patient is awake and alert, in no distress Eye: there is normal conjunctiva bilaterally. Neck: The neck is supple, there is no JVD. Cardiovascular: Normal S1-S2, no S3-S4, no murmurs. Respiratory: Lungs clear to auscultation bilaterally Gastrointestinal: Abdomen is soft, nontender Musculoskeletal: There is no pedal edema. Neurological:. Speech is normal. There is left-sided hemiplegia Skin: Skin is warm and dry - Labs CBC & Chem 7: 01/23/17 07:22 01/23/17 07:22 Labs: Abnormal Lab Results - Last 24 Hours (Table) 01/22/17 01/22/17 01/22/17 Range/Units 12:24 16:47 20:38 Neutrophils # (1.3-7.7) k/uL Creatinine (0.52-1.04) mg/dL Glucose (74-99) mg/dL POC Glucose (mg/dL) 144 H 206 H 178 H (75-99) mg/dL ALT (9-52) U/L Alkaline Phosphatase (38-126) U/L Total Protein (6.3-8.2) g/dL Albumin (3.5-5.0) g/dL 01/23/17 01/23/17 01/23/17 Range/Units 07:14 07:22 07:22 Neutrophils # 8.1 H (1.3-7.7) k/uL Creatinine 0.50 L (0.52-1.04) mg/dL Glucose 141 H (74-99) mg/dL POC Glucose (mg/dL) 165 H (75-99) mg/dL ALT 57 H (9-52) U/L Alkaline Phosphatase 133 H (38-126) U/L Total Protein 5.8 L (6.3-8.2) g/dL Albumin 2.7 L (3.5-5.0) g/dL 01/23/17 Range/Units 11:50 Neutrophils # (1.3-7.7) k/uL Creatinine (0.52-1.04) mg/dL Glucose (74-99) mg/dL POC Glucose (mg/dL) 219 H (75-99) mg/dL ALT (9-52) U/L Alkaline Phosphatase (38-126) U/L Total Protein (6.3-8.2) g/dL Albumin (3.5-5.0) g/dL Microbiology - Last 24 Hours (Table) 01/19/17 11:07 Blood Culture - Preliminary Blood No Growth after 72 hours Assessment and Plan Plan: 1. Uncomplicated urinary tract infection on IV ceftriaxone awaiting urine culture 2. History of CVA with chronic left-sided hemiplegia 3. Type 2 diabetes mellitus: Well controlled. A1c 6.8. Patient is having borderline low blood glucose in the morning. I would decrease her Levemir dose to 13 units down from 16. 4. Essential hypertension: Blood pressure well-controlled 5. Mixed hyperlipidemia: I would hold Lipitor for now given mild transaminitis. We will repeat blood work in the morning. 6. DVT prophylaxis: Patient is on anticoagulation Today, I reviewed her medication list and lab work results continue current regimen. I discussed with the patient and her that baclofen might be contributing to her symptoms. I would discontinue dose scheduled twice a day and change her evening dose to 10 mg at bedtime. We will continue monitor closely. PT/OT evaluation. Awaiting placement to [facility] for subacute rehab on Tuesday
[2017-01-23] MEDS: CHOLECALCIFEROL 1,000 UNIT TAB PO SCH (12:47)
[2017-01-23] MEDS: LISINOPRIL 20 MG TAB PO SCH (17:27)
[2017-01-23 17:47] LABS: Glucose,Whole Blood 126 mg/dL (75-99)
[2017-01-23] MEDS: BACLOFEN 10 MG TAB PO SCH (20:47)
[2017-01-23] MEDS: MONTELUKAST 10 MG TAB PO SCH (20:47)
[2017-01-23 20:54] LABS: Glucose,Whole Blood 204 mg/dL (75-99)
[2017-01-24 07:16] LABS: Glucose,Whole Blood 139 mg/dL (75-99)
[2017-01-24 07:43] VITALS: RESP 16
[2017-01-24 07:58] LABS: Basophils % (A) 0 %; CH 29.1; CHCM 32.2; Eosinophils # (A) 0.2 k/uL (0-0.7); Eosinophils % (A) 2 %; HCT 38.7 % (34.0-46.0); HDW 2.47; HGB 12.3 gm/dL (11.4-16.0); Luc # (Auto) 0.14; Luc % (Auto) 2; Lymphocytes # (A) 1.3 k/uL (1.0-4.8); Lymphocytes % (A) 15 %; MCH 28.8 pg (25.0-35.0); MCHC 31.7 g/dL (31.0-37.0); MCV 90.9 fL (80.0-100.0); Mean Platelet Volume 7.6; Monocytes # (A) 0.4 k/uL (0-1.0); Monocytes % (A) 4 %; Neutrophils # (A) 6.5 k/uL (1.3-7.7); Neutrophils % (A) 77 %; RBC 4.26 m/uL (3.80-5.40); RDW 13.1 % (11.5-15.5); WBC 8.5 k/uL (3.8-10.6); WBC (Perox) 9.05
[2017-01-24 08:05] LABS: ALT 52 U/L (9-52); AST 25 U/L (14-36); Alkaline Phosphatase 118 U/L (38-126); Anion Gap 7 mmol/L; Blood Urea Nitrogen 8 mg/dL (7-17); Carbon Dioxide 27 mmol/L (22-30); Chloride 106 mmol/L (98-107); Glucose 148 mg/dL (74-99); Non-African American GFR(MDRD) >60 (>60 ml/min/1.73 sqM); Potassium 4.7 mmol/L (3.5-5.1); Sodium 140 mmol/L (137-145); Total Bilirubin 0.4 mg/dL (0.2-1.3); Total Protein 5.9 g/dL (6.3-8.2)
[2017-01-24] MEDS: BECLOMETHASONE DIP 80 MCG/PUFF INHALER INHALATION SCH (08:24)
[2017-01-24] MEDS: PARoxetine 20 MG TAB PO SCH (09:36)
[2017-01-24] MEDS: ASPIRIN 81 MG PO SCH (09:36)
[2017-01-24] MEDS: PANTOPRAZOLE 40 MG TABLET PO SCH (09:36)
[2017-01-24] MEDS: amLODIPine 5 MG TAB PO SCH (09:36)
[2017-01-24] MEDS: METOPROLOL TARTRATE 25 MG TAB PO SCH (09:36)
[2017-01-24] MEDS: MAGNESIUM OXIDE 400 MG TAB PO SCH (09:36)
[2017-01-24] MEDS: APIXABAN 5 MG TAB PO SCH ×2 (09:36→17:08)
[2017-01-24] MEDS: INSULIN LISPRO (humaLOG) 300 UNIT/3 ML VIAL SQ SCH ×3 (09:37→17:08)
[2017-01-24] MEDS: INSULIN DETEMIR 100 UNIT/ML 10 ML VIAL SQ SCH (09:37)
[2017-01-24 11:56] LABS: Glucose,Whole Blood 177 mg/dL (75-99)
[2017-01-24] MEDS: CHOLECALCIFEROL 1,000 UNIT TAB PO SCH (12:26)
--- NOTE | 2017-01-24 12:45 | P.DS ---
Providers Date of admission: 01/19/17 12:28 Expected date of discharge: 01/24/17 Attending physician: Noah Sharif Primary care physician: Sana Guy Hospital Course: 1. Uncomplicated urinary tract infection: Finished antibiotic course during this hospitalization with IV ceftriaxone 2. History of CVA with chronic left-sided hemiplegia 3. Type 2 diabetes mellitus: Well controlled. A1c 6.8. Insulin regimen adjusted during this hospitalization secondary to episode of hypoglycemia 4. Essential hypertension: Blood pressure well-controlled 5. Mixed hyperlipidemia: I would hold Lipitor for now given mild transaminitis. We will repeat blood work in the morning. 6. Physical debility: Seen and evaluated by PT/OT. Patient would be discharged to [facility] for subacute rehab. Patient Condition at Discharge: Fair Plan - Discharge Summary New Discharge Prescriptions: New Baclofen [Lioresal] 10 mg PO HS tab Insulin Detemir [Levemir] 13 unit SQ AC-BRKFST #3 vial Lisinopril [Zestril] 40 mg PO W/SUPPER #30 tab Continue Aspirin 81 mg PO DAILY Montelukast [Singulair] 10 mg PO HS Beclomethasone Dipropionate [Qvar 80 mcg/puff] 2 puff INHALATION RT-BID Albuterol Sulfate [Proair Hfa] 1 - 2 puff INHALATION RT-Q6H PRN PRN Reason: Shortness Of Breath metFORMIN HCL [Glucophage] 500 mg PO BID Liraglutide [Victoza 3-Kaden] 1.2 mg SQ W/SUPPER Magnesium Oxide [Mag-Ox] 400 mg PO DAILY Cholecalciferol [Vitamin D3] 2,000 unit PO DAILY PARoxetine HCL [Paxil] 40 mg PO DAILY Omeprazole 40 mg PO DAILY amLODIPine [Norvasc] 5 mg PO BID Atorvastatin [Lipitor] 40 mg PO DAILY Apixaban [Eliquis] 5 mg PO AC-BID Teriparatide [Forteo] 20 mcg SQ DAILY Metoprolol Tartrate [Lopressor] 25 mg PO BID Discontinued Ramipril 10 mg PO W/SUPPER Baclofen [Lioresal] 15 mg PO HS Baclofen [Lioresal] 5 mg PO BID@0800,1200 Insulin Detemir [Levemir] 16 unit SQ AC-BRKFST Ciprofloxacin HCl [Cipro] 500 mg PO Q12HR #20 tablet Discharge Medication List Albuterol Sulfate [Proair Hfa] 1 - 2 puff INHALATION RT-Q6H PRN 12/20/14 [ History] Aspirin 81 mg PO DAILY 12/20/14 [History] Beclomethasone Dipropionate [Qvar 80 mcg/puff] 2 puff INHALATION RT-BID [History] Liraglutide [Victoza 3-Kaden] 1.2 mg SQ W/SUPPER 12/20/14 [History] Montelukast [Singulair] 10 mg PO HS 12/20/14 [History] metFORMIN HCL [Glucophage] 500 mg PO BID 12/20/14 [History] Apixaban [Eliquis] 5 mg PO AC-BID 01/17/17 [History] Atorvastatin [Lipitor] 40 mg PO DAILY 01/17/17 [History] Cholecalciferol [Vitamin D3] 2,000 unit PO DAILY 01/17/17 [History] Magnesium Oxide [Mag-Ox] 400 mg PO DAILY 01/17/17 [History] Omeprazole 40 mg PO DAILY 01/17/17 [History] PARoxetine HCL [Paxil] 40 mg PO DAILY 01/17/17 [History] Teriparatide [Forteo] 20 mcg SQ DAILY 01/17/17 [History] amLODIPine [Norvasc] 5 mg PO BID 01/17/17 [History] Metoprolol Tartrate [Lopressor] 25 mg PO BID 01/19/17 [History] Baclofen [Lioresal] 10 mg PO HS tab 01/24/17 [Rx] Insulin Detemir [Levemir] 13 unit SQ AC-BRKFST #3 vial 01/24/17 [Rx] Lisinopril [Zestril] 40 mg PO W/SUPPER #30 tab 01/24/17 [Rx] Follow up Appointment(s)/Referral(s): Sana Guy MD [Primary Care Provider] - 1-2 days Noah Sharif MD [STAFF PHYSICIAN] - 1 Week Discharge Disposition: TRANSFER TO SNF/ECF
[2017-01-24 15:26] VITALS: BP 125/61; PULSE 64; TEMP 98.8
[2017-01-24] MEDS: LISINOPRIL 20 MG TAB PO SCH (17:08)
== END 2017-01-24 18:21 | DRG 690 ==
LOC: EC 10:13 → 4MS4W 12:28
PROVIDERS: ADMIT Internal Medicine; ATTEND Internal Medicine
DX: N39.0 Urinary tract infection, site not specified (principal); E11.649 Type 2 diabetes mellitus with hypoglycemia without coma; I69.354 Hemiplegia and hemiparesis following cerebral infarction affecting left non-dominant side; I48.91 Unspecified atrial fibrillation; E78.2 Mixed hyperlipidemia; F32.9 Major depressive disorder, single episode, unspecified; F41.9 Anxiety disorder, unspecified; I10 Essential (primary) hypertension; J45.909 Unspecified asthma, uncomplicated; K21.9 Gastro-esophageal reflux disease without esophagitis; Z74.01 Bed confinement status; Z79.01 Long term (current) use of anticoagulants; Z79.4 Long term (current) use of insulin; Z79.82 Long term (current) use of aspirin; Z79.899 Other long term (current) drug therapy; Z80.7 Family history of other malignant neoplasms of lymphoid, hematopoietic and related tissues; Z82.5 Family history of asthma and other chronic lower respiratory diseases; Z87.891 Personal history of nicotine dependence; Z96.1 Presence of intraocular lens; Z99.3 Dependence on wheelchair; Z88.0 Allergy status to penicillin
CPT/HCPCS: 36415; 71020; 80053; 81001; 82550; 82553; 83036; 83605; 83735; 84484; 85025; 85610; 85730; 87040; 87086; 93005; 94640; 96361; 96365; 96366; 99285

== ENCOUNTER 2017-07-03 10:03 | Observation (INO) | payer MEDICARE ==
--- NOTE | 2017-07-03 10:33 | ED ---
General Adult HPI - General Chief complaint: Urogenital Stated complaint: UTI Time Seen by Provider: 07/03/17 10:05 Source: EMS, RN notes reviewed Mode of arrival: EMS Limitations: no limitations - History of Present Illness Initial comments: This is a 77-year-old female who presents emergency Department with complaint of burning with urination. Patient states she's incontinent so whenever she has some urine produced it hurts. Patient denies any suprapubic pain. Patient denies any fever. Patient denies any back pain. states the patient has been checked for fevers and has not had any according to him as well. Patient denies any chest pain or difficulty breathing. Patient's states that she is getting so weak that he is unable to transfer home safely. Patient denies any headache patient denies any vomiting or diarrhea. She has a history of UTIs - Related Data Home Medications Medication Instructions Recorded Confirmed Albuterol Sulfate [Proair Hfa] 1 - 2 puff INHALATION RT-Q6H PRN 12/20/14 Aspirin 81 mg PO DAILY 12/20/14 07/03/17 Beclomethasone Dipropionate [Qvar 2 puff INHALATION RT-BID 12/20/14 07/03/17 80 mcg/puff] Liraglutide [Victoza 3-Kaden] 1.2 mg SQ W/SUPPER 12/20/14 07/03/17 Montelukast [Singulair] 10 mg PO HS 12/20/14 07/03/17 metFORMIN HCL [Glucophage] 500 mg PO BID 12/20/14 07/03/17 Apixaban [Eliquis] 5 mg PO AC-BID 01/17/17 07/03/17 Atorvastatin [Lipitor] 40 mg PO W/SUPPER 01/17/17 07/03/17 Cholecalciferol [Vitamin D3] 2,000 unit PO DAILY 01/17/17 07/03/17 Magnesium Oxide [Mag-Ox] 400 mg PO DAILY 01/17/17 07/03/17 Omeprazole 40 mg PO DAILY 01/17/17 07/03/17 PARoxetine HCL [Paxil] 40 mg PO DAILY 01/17/17 07/03/17 amLODIPine [Norvasc] 5 mg PO BID 01/17/17 07/03/17 Metoprolol Tartrate [Lopressor] 25 mg PO BID 01/19/17 07/03/17 Baclofen 5mg 5 mg PO BID@0800,1200 07/03/17 07/03/17 Baclofen 5mg 7.5 mg PO HS 07/03/17 07/03/17 Insulin Detemir [Levemir] 16 unit SQ AC-BRKFST 07/03/17 07/03/17 Ramipril 10 mg PO W/SUPPER 07/03/17 07/03/17 Teriparatide [Forteo] 20 mcg SQ HS 07/03/17 07/03/17 Allergies Allergy/AdvReac Type Severity Reaction Status Date / Time Penicillins Allergy Unknown Verified 07/03/17 10:22 Childhood Review of Systems ROS Statement: Those systems with pertinent positive or pertinent negative responses have been documented in the HPI. ROS Other: All systems not noted in ROS Statement are negative. Past Medical History Past Medical History: Atrial Fibrillation, Asthma, CVA/TIA, Diabetes Mellitus, GERD/Reflux, Hyperlipidemia, Hypertension Additional Past Medical History / Comment(s): Current UTI on ABX, 06/2016 CVA with L arm and L leg weakness-wheelchair bound, IDDM type II, incontinent of urine and stool-wears depends. History of Any Multi-Drug Resistant Organisms: None Reported Past Surgical History: Breast Surgery, Orthopedic Surgery, Tonsillectomy Additional Past Surgical History / Comment(s): L lung surgery for benign mass, cataract/lens implants both eyes, colonoscopy, R rotator cuff repair. Past Anesthesia/Blood Transfusion Reactions: No Reported Reaction Additional Past Anesthesia/Blood Transfusion Reaction / Comment(s): Pt states she has never received blood. Past Psychological History: Anxiety, Depression Smoking Status: Former smoker Past Alcohol Use History: None Reported Past Drug Use History: None Reported - Past Family History Father Family Medical History: COPD Additional Family Medical History / Comment(s): Father at the age of 65yrs from COPD. He has "thick blood" and had to have blood removed at times. Mother Family Medical History: Cancer Additional Family Medical History / Comment(s): Mother of lymphosarcoma at the age of 55yrs. General Exam - General Exam Comments Initial Comments: GENERAL: Patient is well-developed and well-nourished. Patient is nontoxic and well- hydrated and is in no acute distress. ENT: Neck is soft and supple. No significant lymphadenopathy is noted. Oropharynx is clear. Moist mucous membranes. Neck has full range of motion without eliciting any pain. EYES: The sclera were anicteric and conjunctiva were pink and moist. Extraocular movements were intact and pupils were equal round and reactive to light. Eyelids were unremarkable. PULMONARY: Unlabored respirations. Good breath sounds bilaterally. No audible rales rhonchi or wheezing was noted. CARDIOVASCULAR: There is a regular rate and rhythm without any murmurs gallops or rubs. ABDOMEN: Soft and nontender with normal bowel sounds. SKIN: Skin is clear with no lesions or rashes and otherwise unremarkable. NEUROLOGIC: Patient is alert and oriented 2. Cranial nerves II through XII are grossly intact. Patient has some left-sided weakness which is residual and states is normal for her MUSCULOSKELETAL: Normal extremities with adequate strength and full range of motion. LYMPHATICS: No significant lymphadenopathy is noted PSYCHIATRIC: Normal psychiatric evaluation. Limitations: no limitations Course Vital Signs 07/03/17 10:10 Temperature 97.8 F Pulse Rate 73 Respiratory 18 Rate Blood Pressure 162/73 O2 Sat by Pulse 95 Oximetry Medical Decision Making - Medical Decision Making EKG shows normal sinus rhythm at 70 bpm OH interval 160 QRS 72 QT interval 4:30 QTC is 464. Patient's EKG shows no ST segment elevation or depression or T wave abnormalities are noted Spoke with Dr. Carranza he agreed to admit the patient admitted the patient. I started the patient on Rocephin and continue Rocephin on the floor. - Lab Data Result diagrams: 07/03/17 11:34 07/03/17 11:34 Lab Results 07/03/17 07/03/17 07/03/17 Range/Units 11:34 11:34 11:34 WBC 6.0 (3.8-10.6) k/uL RBC 4.32 (3.80-5.40) m/uL Hgb 12.4 (11.4-16.0) gm/dL Hct 37.8 (34.0-46.0) % MCV 87.5 (80.0-100.0) fL MCH 28.7 (25.0-35.0) pg MCHC 32.8 (31.0-37.0) g/dL RDW 13.6 (11.5-15.5) % Plt Count 293 (150-450) k/uL Neutrophils % 60 % Lymphocytes % 25 % Monocytes % 8 % Eosinophils % 5 % Basophils % 1 % Neutrophils # 3.6 (1.3-7.7) k/uL Lymphocytes # 1.5 (1.0-4.8) k/uL Monocytes # 0.5 (0-1.0) k/uL Eosinophils # 0.3 (0-0.7) k/uL Basophils # 0.1 (0-0.2) k/uL Sodium 142 (137-145) mmol/L Potassium 4.4 (3.5-5.1) mmol/L Chloride 105 (98-107) mmol/L Carbon Dioxide 26 (22-30) mmol/L Anion Gap 11 mmol/L BUN 14 (7-17) mg/dL Creatinine 0.43 L (0.52-1.04) mg/dL Est GFR (CKD-EPI)AfAm >90 (>60 ml/min/1.73 sqM) Est GFR (CKD-EPI)NonAf >90 (>60 ml/min/1.73 sqM) Glucose 92 (74-99) mg/dL Plasma Lactic Acid Demetris 2.0 (0.7-2.0) mmol/L Calcium 9.7 (8.4-10.2) mg/dL Total Bilirubin 0.5 (0.2-1.3) mg/dL AST 25 (14-36) U/L ALT 32 (9-52) U/L Alkaline Phosphatase 49 (38-126) U/L Total Protein 6.4 (6.3-8.2) g/dL Albumin 3.7 (3.5-5.0) g/dL Urine Color Urine Appearance (Clear) Urine pH (5.0-8.0) Ur Specific Langley (1.001-1.035) Urine Protein (Negative) Urine Glucose (UA) (Negative) Urine Ketones (Negative) Urine Blood (Negative) Urine Nitrite (Negative) Urine Bilirubin (Negative) Urine Urobilinogen (<2.0) mg/dL Ur Leukocyte Esterase (Negative) Urine RBC (0-5) /hpf Urine WBC (0-5) /hpf Urine WBC Clumps (None) /hpf Urine Bacteria (None) /hpf Hyaline Casts (0-2) /lpf Urine Mucus (None) /hpf Urine Yeast (Budding) (None) /hpf 07/03/17 Range/Units 11:34 WBC (3.8-10.6) k/uL RBC (3.80-5.40) m/uL Hgb (11.4-16.0) gm/dL Hct (34.0-46.0) % MCV (80.0-100.0) fL MCH (25.0-35.0) pg MCHC (31.0-37.0) g/dL RDW (11.5-15.5) % Plt Count (150-450) k/uL Neutrophils % % Lymphocytes % % Monocytes % % Eosinophils % % Basophils % % Neutrophils # (1.3-7.7) k/uL Lymphocytes # (1.0-4.8) k/uL Monocytes # (0-1.0) k/uL Eosinophils # (0-0.7) k/uL Basophils # (0-0.2) k/uL Sodium (137-145) mmol/L Potassium (3.5-5.1) mmol/L Chloride (98-107) mmol/L Carbon Dioxide (22-30) mmol/L Anion Gap mmol/L BUN (7-17) mg/dL Creatinine (0.52-1.04) mg/dL Est GFR (CKD-EPI)AfAm (>60 ml/min/1.73 sqM) Est GFR (CKD-EPI)NonAf (>60 ml/min/1.73 sqM) Glucose (74-99) mg/dL Plasma Lactic Acid Demetris (0.7-2.0) mmol/L Calcium (8.4-10.2) mg/dL Total Bilirubin (0.2-1.3) mg/dL AST (14-36) U/L ALT (9-52) U/L Alkaline Phosphatase (38-126) U/L Total Protein (6.3-8.2) g/dL Albumin (3.5-5.0) g/dL Urine Color Yellow Urine Appearance Cloudy H (Clear) Urine pH 8.0 (5.0-8.0) Ur Specific L[place]y 1.011 (1.001-1.035) Urine Protein Negative (Negative) Urine Glucose (UA) Negative (Negative) Urine Ketones Negative (Negative) Urine Blood Negative (Negative) Urine Nitrite Positive H (Negative) Urine Bilirubin Negative (Negative) Urine Urobilinogen <2.0 (<2.0) mg/dL Ur Leukocyte Esterase Large H (Negative) Urine RBC 6 H (0-5) /hpf Urine WBC 45 H (0-5) /hpf Urine WBC Clumps Occasional H (None) /hpf Urine Bacteria Occasional H (None) /hpf Hyaline Casts 1 (0-2) /lpf Urine Mucus Rare H (None) /hpf Urine Yeast (Budding) Few H (None) /hpf Disposition Clinical Impression: UTI (urinary tract infection), Generalized weakness Disposition: ADMITTED IP TO THIS HOSP Referrals: Sana Guy MD [Primary Care Provider] - 1-2 days Time of Disposition: 12:39
[2017-07-03] MEDS: SODIUM CHLORIDE 0.9% 500 ML IV SCH (11:31)
[2017-07-03 11:42] LABS: Basophils # (A) 0.1 k/uL (0-0.2); Basophils % (A) 1 %; Eosinophils # (A) 0.3 k/uL (0-0.7); Eosinophils % (A) 5 %; HCT 37.8 % (34.0-46.0); HGB 12.4 gm/dL (11.4-16.0); Lymphocytes # (A) 1.5 k/uL (1.0-4.8); Lymphocytes % (A) 25 %; MCH 28.7 pg (25.0-35.0); MCHC 32.8 g/dL (31.0-37.0); MCV 87.5 fL (80.0-100.0); Mean Platelet Volume 7.9; Monocytes # (A) 0.5 k/uL (0-1.0); Monocytes % (A) 8 %; Neutrophils # (A) 3.6 k/uL (1.3-7.7); Neutrophils % (A) 60 %; Platelet Count 293 k/uL (150-450); RBC 4.32 m/uL (3.80-5.40); RDW 13.6 % (11.5-15.5)
[2017-07-03 11:52] LABS: Appearance,Urine Cloudy (Clear); Bacteria,Urine Occasional /hpf; Bilirubin,Urine Negative (Negative); Blood,Urine Negative (Negative); Budding Yeast,Urine Few /hpf; Color,Urine Yellow; Glucose,Urine (UA) Negative (Negative); Hyaline Casts,Urine 1 /lpf (0-2); Ketones,Urine Negative (Negative); Leukocyte Esterase,Urine Large (Negative); Mucus,Urine Rare /hpf; Nitrite,Urine Positive (Negative); Protein,Urine Negative (Negative); RBC,Urine 6 /hpf (0-5); Specific Gravity,Urine 1.011 (1.001-1.035); Urobilinogen,Urine <2.0 mg/dL (<2.0); WBC,Urine 45 /hpf (0-5)
[2017-07-03 11:59] LABS: Albumin 3.7 g/dL (3.5-5.0); Anion Gap 11 mmol/L; Calcium 9.7 mg/dL (8.4-10.2); Carbon Dioxide 26 mmol/L (22-30); Chloride 105 mmol/L (98-107); Glucose 92 mg/dL (74-99); Sodium 142 mmol/L (137-145); Total Bilirubin 0.5 mg/dL (0.2-1.3); Total Protein 6.4 g/dL (6.3-8.2)
[2017-07-03 12:00] LABS: AST 25 U/L (14-36); Blood Urea Nitrogen 14 mg/dL (7-17); Potassium 4.4 mmol/L (3.5-5.1)
[2017-07-03 12:01] LABS: ALT 32 U/L (9-52); Alkaline Phosphatase 49 U/L (38-126)
[2017-07-03] MEDS ORDERED: cefTRIAXone IN SWFI 1,000 MG/10 ML SYRINGE IVP STA (12:20)
[2017-07-03] MEDS ORDERED: SODIUM CHLORIDE 0.9% 1,000 ML IV ONE (12:39)
[2017-07-03 17:23] VITALS: BMI 25.8
[2017-07-03] MEDS ORDERED: ALBUTEROL NEBULIZED 2.5 MG/3 ML INHALATION PRN (18:56)
[2017-07-03] MEDS: BECLOMETHASONE DIP 80 MCG/PUFF INHALER INHALATION SCH ×2 (20:46→20:50)
[2017-07-03] MEDS: METOPROLOL TARTRATE 25 MG TAB PO SCH (22:10)
[2017-07-03] MEDS: metFORMIN 500 MG TAB PO SCH (22:10)
[2017-07-03] MEDS: amLODIPine 5 MG TAB PO SCH (22:10)
[2017-07-03] MEDS: MONTELUKAST 10 MG TAB PO SCH (22:10)
[2017-07-03] MEDS: BACLOFEN PO SCH (22:11)
[2017-07-03] MEDS: INSULIN ASPART 100 UNIT/ML 1 ML 10 ML VIAL SQ SCH (22:11)
[2017-07-03 22:22] LABS: Glucose,Whole Blood 87 mg/dL (75-99)
[2017-07-04 07:05] LABS: Glucose,Whole Blood 102 mg/dL (75-99)
[2017-07-04] MEDS ORDERED: INSULIN DETEMIR 100 UNIT/ML 10 ML VIAL SQ SCH (07:30)
[2017-07-04] MEDS: INSULIN ASPART 100 UNIT/ML 1 ML 10 ML VIAL SQ SCH ×3 (08:23→17:40)
[2017-07-04] MEDS: APIXABAN 5 MG TAB PO SCH ×2 (08:28→17:36)
[2017-07-04] MEDS: PANTOPRAZOLE 40 MG TABLET PO SCH (08:28)
[2017-07-04] MEDS: BACLOFEN 10 MG TAB PO SCH ×2 (08:29→12:56)
[2017-07-04] MEDS: cefTRIAXone IN SWFI 1,000 MG/10 ML SYRINGE IVP SCH (08:33)
[2017-07-04] MEDS: ASPIRIN 81 MG PO SCH (08:33)
[2017-07-04] MEDS: amLODIPine 5 MG TAB PO SCH (08:33)
[2017-07-04] MEDS: metFORMIN 500 MG TAB PO SCH ×2 (08:34→09:39)
[2017-07-04] MEDS: METOPROLOL TARTRATE 25 MG TAB PO SCH (08:34)
[2017-07-04] MEDS: PARoxetine 20 MG TAB PO SCH (08:35)
[2017-07-04] MEDS: BECLOMETHASONE DIP 80 MCG/PUFF INHALER INHALATION SCH ×2 (09:46→20:32)
[2017-07-04 11:16] LABS: Glucose,Whole Blood 105 mg/dL (75-99)
--- NOTE | 2017-07-04 12:04 | P.HPIM ---
History of Present Illness H&P Date: 07/04/17 This is a 77-year-old female with past medical history noted below significant for history of stroke with left sided hemiplegia that is mostly bedbound presented to the emergency room with foul-smelling urine and burning sensation. Patient is mostly urinary incontinence. She was having worsening burning with her urine as well as cloudy and foul-smelling urine. She presented to the emergency room for further evaluation. She was found to have an underlying UTI. She is currently admitted to the hospital for further evaluation. She was slightly dehydrated on exam. She was also started on IV fluids. Blood and urine culture are pending. Patient reports feeling better this morning. Review of Systems Review of system: 14 points review of systems were obtained and were negative except to what were mentioned in the HPI. Past Medical History Past Medical History: Atrial Fibrillation, Asthma, CVA/TIA, Diabetes Mellitus, GERD/Reflux, Hyperlipidemia, Hypertension Additional Past Medical History / Comment(s): Current UTI on ABX, 06/2016 CVA with L arm and L leg weakness-wheelchair bound, IDDM type II, incontinent of urine and stool-wears depends. History of Any Multi-Drug Resistant Organisms: None Reported Past Surgical History: Breast Surgery, Orthopedic Surgery, Tonsillectomy Additional Past Surgical History / Comment(s): L lung surgery for benign mass, cataract/lens implants both eyes, colonoscopy, R rotator cuff repair,biopsy breast Past Anesthesia/Blood Transfusion Reactions: No Reported Reaction Additional Past Anesthesia/Blood Transfusion Reaction / Comment(s): Pt states she has never received blood. Past Psychological History: Anxiety, Depression Smoking Status: Former smoker Past Alcohol Use History: None Reported Past Drug Use History: None Reported - Past Family History Father Family Medical History: COPD Additional Family Medical History / Comment(s): emphysema Mother Family Medical History: Cancer Additional Family Medical History / Comment(s): Mother of lymphosarcoma at the age of 55yrs. Medications and Allergies Home Medications Medication Instructions Recorded Confirmed Type Albuterol Sulfate [Proair Hfa] 1 - 2 puff INHALATION RT-Q6H PRN 12/20/14 History Aspirin 81 mg PO DAILY 12/20/14 07/03/17 History Beclomethasone Dipropionate [Qvar 2 puff INHALATION RT-BID 12/20/14 07/03/17 History 80 mcg/puff] Liraglutide [Victoza 3-Kaden] 1.2 mg SQ W/SUPPER 12/20/14 07/03/17 History Montelukast [Singulair] 10 mg PO HS 12/20/14 07/03/17 History metFORMIN HCL [Glucophage] 500 mg PO BID 12/20/14 07/03/17 History Apixaban [Eliquis] 5 mg PO AC-BID 01/17/17 07/03/17 History Atorvastatin [Lipitor] 40 mg PO W/SUPPER 01/17/17 07/03/17 History Cholecalciferol [Vitamin D3] 2,000 unit PO DAILY 01/17/17 07/03/17 History Magnesium Oxide [Mag-Ox] 400 mg PO DAILY 01/17/17 07/03/17 History Omeprazole 40 mg PO DAILY 01/17/17 07/03/17 History PARoxetine HCL [Paxil] 40 mg PO DAILY 01/17/17 07/03/17 History amLODIPine [Norvasc] 5 mg PO BID 01/17/17 07/03/17 History Metoprolol Tartrate [Lopressor] 25 mg PO BID 01/19/17 07/03/17 History Baclofen 5mg 5 mg PO BID@0800,1200 07/03/17 07/03/17 History Baclofen 5mg 7.5 mg PO HS 07/03/17 07/03/17 History Insulin Detemir [Levemir] 11 unit SQ AC-BRKFST 07/03/17 07/04/17 History Ramipril 10 mg PO W/SUPPER 07/03/17 07/03/17 History Teriparatide [Forteo] 20 mcg SQ HS 07/03/17 07/03/17 History Stool Softener 1 tab PO DAILY 07/04/17 History Allergies Allergy/AdvReac Type Severity Reaction Status Date / Time Penicillins Allergy Unknown Verified 07/03/17 10:22 Childhood Physical Exam Vitals: Vital Signs Temp Pulse Pulse Resp BP BP Pulse Ox 07/04/17 07:00 98.0 F 76 16 133/72 94 L 07/03/17 23:00 96.8 F L 73 16 173/73 94 L 07/03/17 22:00 16 07/03/17 20:10 96.9 F L 71 16 150/70 93 L 07/03/17 20:00 16 07/03/17 17:08 97.4 F L 74 16 169/78 95 07/03/17 16:36 97.8 F 80 17 156/92 95 07/03/17 13:49 98.7 F 77 17 162/73 95 07/03/17 12:50 97.0 F L 78 18 168/76 95 Intake and Output 07/03/17 07/04/17 07/04/17 22:59 06:59 14:59 Intake Total 710 Balance 710 Intake: Oral 710 Other: Voiding Method Diaper Diaper Incontinent Incontinent # Voids 1 4 Weight 66.224 kg 66.224 kg Patient Weight 07/05/17 06:59 Weight 66.224 kg General: The patient is awake and alert, in no distress Eye: there is normal conjunctiva bilaterally. Neck: The neck is supple, there is no JVD. Cardiovascular: Normal S1-S2, no S3-S4, no murmurs. Respiratory: Lungs clear to auscultation bilaterally Gastrointestinal: Abdomen is soft, nontender Musculoskeletal: There is no pedal edema. Neurological:. There is left-sided hemiplegia Skin: Skin is warm and dry Results CBC & Chem 7: 07/03/17 11:34 07/03/17 11:34 Labs: Abnormal Lab Results - Last 24 Hours (Table) 07/03/17 07/04/17 07/04/17 Range/Units 11:34 07:02 11:13 Creatinine 0.43 L (0.52-1.04) mg/dL POC Glucose (mg/dL) 102 H 105 H (75-99) mg/dL Microbiology - Last 24 Hours (Table) 07/03/17 11:34 Urine Culture - Preliminary Urine,Voided Thrombosis Risk Factor Assmnt - Choose All That Apply Any of the Below Risk Factors Present?: Yes Each Factor Represents 1 point: Age 41-60 years, Medical pt on bed rest, Obesity (BMI >25) Other Risk Factors: Yes Each Risk Factor Represents 2 Points: Age 61-74 years, Patient confined to bed Each Risk Factor Represents 3 Points: Age 75 years or older, History of DVT/PE Other congenital or acquired thrombophilia - If yes, enter type in comment: No Thrombosis Risk Factor Assessment Total Risk Factor Score: 13 Thrombosis Risk Factor Assessment Level: High Risk Assessment and Plan Assessment: 1. Uncomplicated urinary tract infection, awaiting urine and blood culture. Currently on IV ceftriaxone. 2. History of CVA with chronic left-sided hemiplegia 3. Type 2 diabetes, we'll continue current regimen. Awaiting A1c 4. Essential hypertension: Blood pressure well-controlled 5. Physical debility, awaiting PT/OT. May qualify for subacute rehab. Today, I reviewed her medication list and lab work results. We will continue current regimen. Repeat lab work in the morning.
[2017-07-04] MEDS: CHOLECALCIFEROL 1,000 UNIT TAB PO SCH (12:56)
[2017-07-04] MEDS: MAGNESIUM OXIDE 400 MG TAB PO SCH (12:57)
[2017-07-04 14:01] LABS: Hemoglobin A1C 5.7 % (4.0-6.0)
[2017-07-04 16:01] LABS: Glucose,Whole Blood 167 mg/dL (75-99)
[2017-07-04 16:57] LABS: Glucose,Whole Blood 173 mg/dL (75-99)
[2017-07-04] MEDS ORDERED: LISINOPRIL 20 MG TAB PO SCH (17:30)
[2017-07-04] MEDS ORDERED: ATORVASTATIN 40 MG TAB PO SCH (17:30)
[2017-07-04 20:40] LABS: Glucose,Whole Blood 139 mg/dL (75-99)
[2017-07-05] MEDS: INSULIN ASPART 100 UNIT/ML 1 ML 10 ML VIAL SQ SCH ×3 (01:12→12:33)
[2017-07-05] MEDS: MONTELUKAST 10 MG TAB PO SCH (01:13)
[2017-07-05] MEDS: metFORMIN 500 MG TAB PO SCH ×2 (01:13→08:38)
[2017-07-05] MEDS: METOPROLOL TARTRATE 25 MG TAB PO SCH ×2 (01:13→08:38)
[2017-07-05] MEDS: amLODIPine 5 MG TAB PO SCH ×2 (01:13→08:38)
[2017-07-05] MEDS: BACLOFEN PO SCH (01:15)
[2017-07-05 07:07] LABS: Glucose,Whole Blood 122 mg/dL (75-99)
[2017-07-05] MEDS ORDERED: INSULIN DETEMIR 100 UNIT/ML 10 ML VIAL SQ SCH (07:30)
[2017-07-05 07:57] LABS: Basophils # (A) 0.1 k/uL (0-0.2); Basophils % (A) 1 %; Eosinophils # (A) 0.3 k/uL (0-0.7); Eosinophils % (A) 6 %; HCT 39.5 % (34.0-46.0); HGB 13.2 gm/dL (11.4-16.0); Lymphocytes # (A) 1.7 k/uL (1.0-4.8); Lymphocytes % (A) 27 %; MCH 29.7 pg (25.0-35.0); MCHC 33.5 g/dL (31.0-37.0); MCV 88.7 fL (80.0-100.0); Mean Platelet Volume 7.5; Monocytes # (A) 0.4 k/uL (0-1.0); Monocytes % (A) 7 %; Neutrophils # (A) 3.5 k/uL (1.3-7.7); Neutrophils % (A) 57 %; Platelet Count 303 k/uL (150-450); RBC 4.46 m/uL (3.80-5.40); RDW 13.5 % (11.5-15.5); WBC 6.1 k/uL (3.8-10.6)
[2017-07-05 08:17] LABS: Anion Gap 11 mmol/L; Blood Urea Nitrogen 14 mg/dL (7-17); Calcium 9.4 mg/dL (8.4-10.2); Carbon Dioxide 27 mmol/L (22-30); Chloride 106 mmol/L (98-107); Glucose 117 mg/dL (74-99); Potassium 4.2 mmol/L (3.5-5.1); Sodium 144 mmol/L (137-145)
[2017-07-05 08:36] VITALS: TEMP 98.3
[2017-07-05] MEDS: BACLOFEN 10 MG TAB PO SCH ×2 (08:37→12:30)
[2017-07-05] MEDS: PANTOPRAZOLE 40 MG TABLET PO SCH (08:38)
[2017-07-05] MEDS: ASPIRIN 81 MG PO SCH (08:38)
[2017-07-05] MEDS: PARoxetine 20 MG TAB PO SCH (08:39)
[2017-07-05] MEDS: APIXABAN 5 MG TAB PO SCH (08:39)
[2017-07-05] MEDS: cefTRIAXone IN SWFI 1,000 MG/10 ML SYRINGE IVP SCH (08:39)
[2017-07-05] MEDS: BECLOMETHASONE DIP 80 MCG/PUFF INHALER INHALATION SCH (08:49)
[2017-07-05 11:31] LABS: Glucose,Whole Blood 123 mg/dL (75-99)
--- NOTE | 2017-07-05 12:26 | P.DS ---
Providers Date of admission: 07/03/17 12:39 Expected date of discharge: 07/05/17 Attending physician: Noah Sharif Primary care physician: Sana Guy Hospital Course: 1. Uncomplicated urinary tract infection, urine culture grew K pneumonia susceptible to Cipro. Blood culture negative. 2. History of CVA with chronic left-sided hemiplegia 3. Type 2 diabetes, well controlled. A1c 5.7 4. Essential hypertension: Blood pressure well-controlled 5. Physical debility, seen and evaluated by PT/OT. Plan to discharge to [facility] for subacute rehab. Patient Condition at Discharge: Fair Plan - Discharge Summary Discharge Rx Participant: No New Discharge Prescriptions: New Ciprofloxacin HCl [Cipro] 250 mg PO Q12HR #14 tablet Continue Aspirin 81 mg PO DAILY Montelukast [Singulair] 10 mg PO HS Beclomethasone Dipropionate [Qvar 80 mcg/puff] 2 puff INHALATION RT-BID Albuterol Sulfate [Proair Hfa] 1 - 2 puff INHALATION RT-Q6H PRN PRN Reason: Shortness Of Breath metFORMIN HCL [Glucophage] 500 mg PO BID Liraglutide [Victoza 3-Kaden] 1.2 mg SQ W/SUPPER Magnesium Oxide [Mag-Ox] 400 mg PO DAILY Cholecalciferol [Vitamin D3] 2,000 unit PO DAILY PARoxetine HCL [Paxil] 40 mg PO DAILY Omeprazole 40 mg PO DAILY amLODIPine [Norvasc] 5 mg PO BID Atorvastatin [Lipitor] 40 mg PO W/SUPPER Apixaban [Eliquis] 5 mg PO AC-BID Metoprolol Tartrate [Lopressor] 25 mg PO BID Insulin Detemir [Levemir] 11 unit SQ AC-BRKFST Ramipril 10 mg PO W/SUPPER Teriparatide [Forteo] 20 mcg SQ HS Discontinued Baclofen 5mg 7.5 mg PO HS Baclofen 5mg 5 mg PO BID@0800,1200 Stool Softener 1 tab PO DAILY Discharge Medication List Albuterol Sulfate [Proair Hfa] 1 - 2 puff INHALATION RT-Q6H PRN 12/20/14 [ History] Aspirin 81 mg PO DAILY 12/20/14 [History] Beclomethasone Dipropionate [Qvar 80 mcg/puff] 2 puff INHALATION RT-BID 08/28/ 15 [History] Liraglutide [Victoza 3-Kaden] 1.2 mg SQ W/SUPPER 12/20/14 [History] Montelukast [Singulair] 10 mg PO HS 12/20/14 [History] metFORMIN HCL [Glucophage] 500 mg PO BID 12/20/14 [History] Apixaban [Eliquis] 5 mg PO AC-BID 01/17/17 [History] Atorvastatin [Lipitor] 40 mg PO W/SUPPER 01/17/17 [History] Cholecalciferol [Vitamin D3] 2,000 unit PO DAILY 01/17/17 [History] Magnesium Oxide [Mag-Ox] 400 mg PO DAILY 01/17/17 [History] Omeprazole 40 mg PO DAILY 01/17/17 [History] PARoxetine HCL [Paxil] 40 mg PO DAILY 01/17/17 [History] amLODIPine [Norvasc] 5 mg PO BID 01/17/17 [History] Metoprolol Tartrate [Lopressor] 25 mg PO BID 01/19/17 [History] Insulin Detemir [Levemir] 11 unit SQ AC-BRKFST 07/03/17 [History] Ramipril 10 mg PO W/SUPPER 07/03/17 [History] Teriparatide [Forteo] 20 mcg SQ HS 07/03/17 [History] Ciprofloxacin HCl [Cipro] 250 mg PO Q12HR #14 tablet 07/05/17 [Rx] Follow up Appointment(s)/Referral(s): Noah Sharif MD [STAFF PHYSICIAN] - 1 Week Sana Guy MD [Primary Care Provider] - 4 Weeks Discharge Disposition: TRANSFER TO SNF/ECF
[2017-07-05] MEDS: CHOLECALCIFEROL 1,000 UNIT TAB PO SCH (12:31)
[2017-07-05] MEDS: MAGNESIUM OXIDE 400 MG TAB PO SCH (12:31)
[2017-07-05 15:15] VITALS: BP 129/72; PULSE 75; RESP 16
== END 2017-07-05 16:45 ==
LOC: EC 10:03 → 3OBS 12:39 → 3SUR 16:31
PROVIDERS: ADMIT Internal Medicine; ATTEND Internal Medicine
DX: N39.0 Urinary tract infection, site not specified (principal); B96.1 Klebsiella pneumoniae [K. pneumoniae] as the cause of diseases classified elsewhere; I69.354 Hemiplegia and hemiparesis following cerebral infarction affecting left non-dominant side; E11.9 Type 2 diabetes mellitus without complications; I10 Essential (primary) hypertension; E66.9 Obesity, unspecified; Z68.25 Body mass index [BMI] 25.0-25.9, adult; F41.9 Anxiety disorder, unspecified; F32.9 Major depressive disorder, single episode, unspecified; K21.9 Gastro-esophageal reflux disease without esophagitis; J45.909 Unspecified asthma, uncomplicated; I48.91 Unspecified atrial fibrillation; E78.5 Hyperlipidemia, unspecified; R32 Unspecified urinary incontinence; R15.9 Full incontinence of feces; E86.0 Dehydration; Z87.891 Personal history of nicotine dependence; Z99.3 Dependence on wheelchair; Z74.01 Bed confinement status; Z79.51 Long term (current) use of inhaled steroids; Z79.899 Other long term (current) drug therapy; Z79.01 Long term (current) use of anticoagulants; Z79.4 Long term (current) use of insulin; Z79.84 Long term (current) use of oral hypoglycemic drugs; Z79.82 Long term (current) use of aspirin; Z87.440 Personal history of urinary (tract) infections; Z86.018 Personal history of other benign neoplasm; Z88.0 Allergy status to penicillin; Z82.5 Family history of asthma and other chronic lower respiratory diseases; Z80.7 Family history of other malignant neoplasms of lymphoid, hematopoietic and related tissues
CPT/HCPCS: 99284 ×2; 96374 ×2; 96361 ×7; 96376 ×2; 36415; 93005; 97162; 97166; 80053; 80048; 83605; 85025 ×2; 81001; 87040; 87086; 87077; 87186; 83036; G0378 ×3; J0696 ×3

== ENCOUNTER → 2020-12-30 | Outpatient (CLI) | payer MEDICARE ==
--- NOTE | 2020-12-30 15:50 | BD ---
EXAMINATION TYPE: Axial Bone Density DATE OF EXAM: 12/30/2020 COMPARISON: NONE CLINICAL HISTORY: Height: 63 Weight: 200 FRAX RISK QUESTIONS: Alcohol (3 or more units per day): no Family History (Parent hip fracture): no Glucocorticoids (More than 3mos): no (Ex: prednisone, prednisolone, methylprednisolone, dexamethasone, and hydrocortisone). History of Fracture in Adulthood: yes Secondary Osteoporosis: 1. Type 1 Diabetes: no 2. Hyperthyroidism: no 3. Menopause before 45: yes 4. Malnutrition: no 5. Chronic liver disease: no Rheumatoid Arthritis: no Current Tobacco Use: no RISK FACTORS HISTORY OF: Surgery to Spine/Hip(right/left)/Wrist (right/left): no Active: no Diet low in dairy products/other sources of calcium: no Postmenopausal woman: yes Lost more than 2 inches in height since high school: no Frequent falls: yes MEDICATIONS: Osteoporosis Medications: prolia How Lon years Additional History: EXAM MEASUREMENTS: Bone mineral densitometry was performed using the [employer]. Bone mineral density as measured about the Lumbar spine is: ----- L1-L4(G/cm2): 1.027 T Score Values are as follows: ----- L2: -2.0 ----- L3: -0.5 ----- L4: -1.2 ----- L1-L4: -1.3 Bone mineral density : baseline Bone mineral density about the R hip (g/cm2): 0.726 Bone mineral density about the L hip (g/cm2): 0.592 T Score values are as follows: -----R Neck: -2.2 -----L Neck: -3.2 -----R Total: -1.7 -----L Total: -3.2 Bone mineral density : baseline IMPRESSION: Osteoporosis (T Score less than -2.5). There is increased fracture risk and therapy is usually indicated based on age. Re-Screen 1-2 years. NOTE: T-SCORE=SD OF THE YOUNG ADULT MEAN.
== END | disposition home or self-care (01) ==
LOC: RADBDWWP 14:17
PROVIDERS: ATTEND Family Medicine
DX: M81.0 Age-related osteoporosis without current pathological fracture (principal)
CPT/HCPCS: 77080